=== PATIENT | female | born 1950 | race Caucasian/White ===

== ENCOUNTER 2025-01-30 18:00 | Observation (INO) ==
[2025-01-30] MEDS ORDERED: IOPAMIDOL 100 ML BOTTLE IV ONE (18:01)
[2025-01-30] MEDS: ONDANSETRON 4 MG/2 ML VIAL IV ONE (18:07)
[2025-01-30] MEDS: 0.9 % SODIUM CHLORIDE 1,000 ML IV ONE ×2 (18:07→20:17)
[2025-01-30] MEDS: morphine 2 MG/ML VIAL IV ONE (18:08)
[2025-01-30] MEDS: HYDROmorphone 0.5 MG/0.5 ML SYRINGE IV ONE (18:40)
[2025-01-30 18:48] LABS: INR 0.9 (0.9-1.1); Prothrombin Time 13.1 sec (11.9-14.5)
[2025-01-30 18:55] LABS: Basophils # (Auto) 0.07 K/mcL (0.00-0.30); Basophils % (Auto) 0.4 % (0.0-2.0); Eosinophils # (Auto) 0.07 K/mcL (0.00-0.70); Eosinophils % (Auto) 0.4 % (0.0-7.0); Hematocrit 46.8 % (34.1-44.9); Hemoglobin 14.3 g/dL (11.2-15.7); Lymphocytes # (Auto) 2.27 K/mcL (1.50-4.80); Mean Cell Volume 95.1 fL (80.0-100.0); Mean Corpuscular HGB Conc 30.6 g/dL (31.0-36.0); Mean Platelet Volume 10.9 fL (8.8-12.5); Monocytes # (Auto) 0.77 K/mcL (0.10-0.90); Monocytes % (Auto) 4.4 % (1.0-12.0); Neutrophils % (Auto) 81.6 % (38.0-78.0); Platelet Count 479 K/mcL (140-440); RBC 4.92 M/mcL (3.59-5.38); Red Cell Distribution Width 12.7 % (11.5-14.5); WBC 17.4 K/mcL (4.5-11.0)
[2025-01-30] MEDS: OXYBUTYNIN CHLORIDE 5 MG TABLET PO ONE (19:04)
[2025-01-30 19:07] LABS: ALT/SGPT 33 U/L (<40); AST/SGOT 29 U/L (<32); Albumin 4.5 gm/dL (3.2-5.2); Albumin/Globulin Ratio 1.6 (1.0-2.3); Alkaline Phosphatase 118 U/L (39-117); Bilirubin,Total 0.6 mg/dL (0.1-1.0); Blood Urea Nitrogen 25 mg/dL (8-23); Calcium 9.6 mg/dL (8.6-10.4); Carbon Dioxide 18 mmol/L (22-30); Chloride 100 mmol/L (96-108); Globulin 2.9 gm/dL (2.2-3.7); Glomerular Filtration Rate 40; Glucose 135 mg/dL (70-105); Potassium 4.2 mmol/L (3.3-5.1); Sodium 136 mmol/L (133-145)
[2025-01-30] MEDS: CEFEPIME 1 GM VIAL IV ONE (20:12)
[2025-01-30 21:44] LABS: Appearance,Urine Cloudy (Clear); Bacteria,Urine Many /hpf (0); Bilirubin,Urine Small mg/dL (Negative); Color,Urine Yellow; Glucose,Urine (UA) Negative (Negative); Ketones,Urine 15 mg/dL (Negative); Leukocyte Esterase,Urine Trace /uL (Negative); Nitrate,Urine Negative (Negative); PH,Urine 6.5 (5.0-9.0); Protein,Urine >=300 mg/dL (Negative); Specific Gravity,Urine 1.025 (1.000-1.035); Urine Blood Large ery/mcL (Negative); Urine RBC > 182 /hpf (0-1); Urine Squamous Epithelial Cell 2 /hpf (0-4); Urine WBC 150 /hpf (0-4); Urobilinogen,Urine Normal
[2025-01-30] MEDS: DIAZEPAM 5 MG TABLET PO ONE (22:25)
[2025-01-30] MEDS ORDERED: ACETAMINOPHEN 325 MG TABLET PO PRN (22:29)
[2025-01-31] MEDS: HYDROmorphone 0.5 MG/0.5 ML SYRINGE IV PRN (00:12)
[2025-01-31] MEDS: ONDANSETRON 4 MG/2 ML VIAL IV PRN (00:19)
[2025-01-31] MEDS: CEFEPIME 1 GM VIAL IV SCH (03:04)
[2025-01-31] MEDS: HYDROcodone/APAP 5/325MG TABLET PO PRN (03:08)
[2025-01-31] MEDS: OXYBUTYNIN CHLORIDE 5 MG TABLET PO SCH (08:37)
[2025-01-31 09:43] LABS: Basophils # (Auto) 0.04 K/mcL (0.00-0.30); Basophils % (Auto) 0.4 % (0.0-2.0); Eosinophils # (Auto) 0.03 K/mcL (0.00-0.70); Eosinophils % (Auto) 0.3 % (0.0-7.0); Hematocrit 38.8 % (34.1-44.9); Hemoglobin 12.2 g/dL (11.2-15.7); Lymphocytes # (Auto) 2.22 K/mcL (1.50-4.80); Lymphocytes % (Auto) 24.6 % (15.5-49.0); Mean Cell Volume 94.2 fL (80.0-100.0); Mean Corpuscular HGB Conc 31.4 g/dL (31.0-36.0); Mean Platelet Volume 10.3 fL (8.8-12.5); Monocytes # (Auto) 0.88 K/mcL (0.10-0.90); Monocytes % (Auto) 9.7 % (1.0-12.0); Neutrophils % (Auto) 64.9 % (38.0-78.0); Platelet Count 328 K/mcL (140-440); RBC 4.12 M/mcL (3.59-5.38); Red Cell Distribution Width 12.9 % (11.5-14.5)
[2025-01-31] MEDS: ASPIRIN 81 MG TAB.CHEW PO SCH (09:54)
[2025-01-31] MEDS: LEVOTHYROXINE 50 MCG TABLET PO SCH (09:54)
[2025-01-31] MEDS: ATENOLOL 50 MG TABLET PO SCH (09:54)
[2025-01-31] MEDS: AMITRIPTYLINE 10 MG TABLET PO SCH (09:55)
[2025-01-31 09:56] LABS: ALT/SGPT 23 U/L (<40); AST/SGOT 16 U/L (<32); Albumin 3.6 gm/dL (3.2-5.2); Albumin/Globulin Ratio 1.6 (1.0-2.3); Alkaline Phosphatase 95 U/L (39-117); Bilirubin,Direct 0.2 mg/dL (<0.3); Bilirubin,Total 0.5 mg/dL (0.1-1.0); Blood Urea Nitrogen 23 mg/dL (8-23); Calcium 8.7 mg/dL (8.6-10.4); Carbon Dioxide 22 mmol/L (22-30); Chloride 105 mmol/L (96-108); Globulin 2.2 gm/dL (2.2-3.7); Glomerular Filtration Rate 63; Glucose 93 mg/dL (70-105); Lactate Dehydrogenase 125 U/L (135-225); Phosphorous 3.2 mg/dL (2.5-4.5); Potassium 4.4 mmol/L (3.3-5.1); Sodium 137 mmol/L (133-145); Triglycerides 82 mg/dL (<150); Uric Acid 4.2 mg/dL (2.5-8.0)
[2025-01-31] MEDS: ATORVASTATIN 40 MG TABLET PO SCH (09:56)
[2025-01-31] MEDS: FLUoxetine HCL 20 MG CAPSULE PO SCH (09:56)
[2025-01-31] MEDS ORDERED: SENNOSIDES 1 TABLET PO PRN (10:20)
[2025-01-31] MEDS ORDERED: POTASSIUM CHLORIDE 40 MEQ in DEXTROSE 5% IN WATER 500 ML IV PRN (10:20)
[2025-01-31] MEDS ORDERED: POLYETHYLENE GLYCOL 3350 17 GM PACKET PO PRN (10:20)
[2025-01-31] MEDS ORDERED: MAGNESIUM SULFATE 2 GM/50 ML BAG IV PRN (10:20)
[2025-01-31] MEDS ORDERED: METOCLOPRAMIDE 10 MG/2 ML VIAL IV PRN (10:20)
[2025-01-31] MEDS ORDERED: IPRATROPIUM/ALBUTEROL 3 ML AMPUL.NEB NEB PRN (10:20)
[2025-01-31] MEDS ORDERED: POTASSIUM CHLORIDE 20 MEQ TABLET PO PRN ×2 (10:20)
[2025-01-31] MEDS: 0.9 % SODIUM CHLORIDE 1,000 ML IV ONE (11:10)
[2025-01-31] MEDS: ENOXAPARIN 40 MG/0.4 ML SYRINGE SQ SCH (11:11)
[2025-01-31] MEDS: 0.9 % SODIUM CHLORIDE 10 ML SYRINGE IV SCH (14:59)
[2025-02-01 06:47] LABS: Basophils # (Auto) 0.04 K/mcL (0.00-0.30); Basophils % (Auto) 0.6 % (0.0-2.0); Eosinophils # (Auto) 0.23 K/mcL (0.00-0.70); Eosinophils % (Auto) 3.6 % (0.0-7.0); Hematocrit 34.3 % (34.1-44.9); Hemoglobin 10.7 g/dL (11.2-15.7); Lymphocytes # (Auto) 1.44 K/mcL (1.50-4.80); Lymphocytes % (Auto) 22.5 % (15.5-49.0); Mean Cell Volume 94.8 fL (80.0-100.0); Mean Corpuscular HGB Conc 31.2 g/dL (31.0-36.0); Mean Platelet Volume 11.1 fL (8.8-12.5); Monocytes # (Auto) 0.61 K/mcL (0.10-0.90); Monocytes % (Auto) 9.5 % (1.0-12.0); Neutrophils % (Auto) 63.6 % (38.0-78.0); Platelet Count 269 K/mcL (140-440); RBC 3.62 M/mcL (3.59-5.38); Red Cell Distribution Width 13.1 % (11.5-14.5); WBC 6.4 K/mcL (4.5-11.0)
[2025-02-01 07:02] LABS: Blood Urea Nitrogen 20 mg/dL (8-23); Calcium 8.3 mg/dL (8.6-10.4); Carbon Dioxide 20 mmol/L (22-30); Chloride 107 mmol/L (96-108); Glomerular Filtration Rate 63; Glucose 90 mg/dL (70-105); Sodium 135 mmol/L (133-145)
[2025-02-01] MEDS: CEFEPIME 1 GM VIAL IV SCH (09:06)
[2025-02-01 16:12] VITALS: TEMP 98.3; O2SAT 98
== END 2025-02-01 14:45 | disposition home or self-care (01) ==
LOC: MEDSUR 18:00 → ED 18:00 → MEDSUR 01-31
PROVIDERS: ADMIT Internal Medicine; ATTEND Internal Medicine